=== PATIENT | male | born 1955 | race Two or more races ===

== ENCOUNTER 2019-04-06 06:47 | Day surgery (SDC) | payer OTHER, MEDICAID ==
--- NOTE | 2019-04-05 10:15 | NUR ---
CALL TO DR WILLIAM OFFICE, SPOKE WITH EVON. PT NEEDS PREOP TESTING PRIOR TO PROCEDURE TOMORROW. PT HAS DIALYSIS TODAY. PER EVON TO HAVE PT HAVE PREOP CBC, BMP, CXR AND EKG [place] STAT ON ADMISSION. PT ON XARELTO 10MG QD. PER EVON AND DR WILLIAM OK TO TAKE XARELTO DOSE TODAY AFTER DIALYSIS TX. PT CALLED AND NOTIFIED. VERBALIZED UNDERSTANDING.
[~2019-04-06] VITALS: Ht 177.8 cm; Wt 88.5 kg
[2019-04-06 07:39] VITALS: BP 135/74
[2019-04-06 09:09] LABS: BASOPHIL % 0.7 % (0-2)
[2019-04-06 09:15] LABS: PLATELET COUNT 175 x10^3mcL (130-400); RED CELL DISTRIBUTION WIDTH 18.9 % (11.5-14.5)
[2019-04-06 09:23] LABS: CALCIUM 8.7 mg/dL (8.5-10.1); CARBON DIOXIDE 27.3 mmol/L (21-32); POTASSIUM SERUM 5.2 mmol/L (3.5-5.1)
[2019-04-06 09:25] LABS: CREATININE SERUM 7.1 mg/dL (0.7-1.3)
[2019-04-06 15:40] VITALS: BP 152/72
== END 2019-04-06 15:35 | disposition home or self-care (01) ==
LOC: DS 06:47 → OR 12:00 → DS 15:35
PROVIDERS: Surgery
DX: I12.0 Hypertensive chronic kidney disease with stage 5 chronic kidney disease or end stage renal disease (principal); E11.22 Type 2 diabetes mellitus with diabetic chronic kidney disease; N18.6 End stage renal disease; E66.3 Overweight; K21.9 Gastro-esophageal reflux disease without esophagitis; G83.24 Monoplegia of upper limb affecting left nondominant side; Z79.4 Long term (current) use of insulin; Z79.899 Other long term (current) drug therapy; Z98.890 Other specified postprocedural states; Z88.8 Allergy status to other drugs, medicaments and biological substances; Z68.28 Body mass index [BMI] 28.0-28.9, adult; Z86.73 Personal history of transient ischemic attack (TIA), and cerebral infarction without residual deficits
CPT/HCPCS: J0690; J1644; J2001; J2405; J2704; J3010; J3490; J7030; Q0092